=== PATIENT | female | born 1990 | race Caucasian/White ===

== ENCOUNTER 2019-04-27 01:48 | Outpatient (CLI) | payer OTHER ==
[2019-04-27 02:35] VITALS: BP 135/69; PULSE 118; RESP 18; TEMP 97.3
--- NOTE | 2019-04-30 12:24 | P.MSEPDOC ---
Presenting Problems - Arrival Data Date of Arrival on Unit: 04/27/19 Time of Arrival on Unit: 01:48 Mode of Transport: Ambulatory - Complaint OB-Reason for Admission/Chief Complaint: Pain Medical History - Information : 2 Para: 1 Term: 1 : 0 Abortions: Spontaneous or Elective: 0 Number of Living Children: 1 - Gestational Age Gestational Age by ARGELIA (wks/days): 21 Weeks and 2 Days Review of Systems - Review of Systems Constitutional: No problems Breast: No problems ENT: No problems Cardiovascular: No problems Respiratory: No problems Gastrointestinal: No problems Genitourinary: No problems Musculoskeletal: No problems Neurological: No problems Skin: No problems Vital Signs - Temperature Temperature: 97.3 F Temperature Source: Temporal Artery Scan - Pulse Right Brachial Pulse Rate: 118 Pulse Assessment Method: Automatic Cuff - Respirations Respiratory Rate: 18 Oxygen Delivery Method: Room Air O2 Sat by Pulse Oximetry: 98 - Blood Pressure Right Arm Blood Pressure: 135/69 Blood Pressure Mean: 91 Blood Pressure Source: Automatic Cuff Medical Screen Scoring (Pre) - Cervical Exam Dilation: Exam Deferred Effacement: Exam Deferred - Uterine Contractions Frequency: N/A Duration: N/A Intensity: N/A - Maternal Vital Signs Maternal Temperature: N/A Signs of Preeclampsia: N/A Maternal Respirations: N/A - Maternal Trauma Maternal Trauma: N/A - Assessment - Baby A Heart Rate - NICHD Category: Category I (Normal) = 0 - Total Score - Baby A Total Score - Baby A: 0 - Total Score - Baby B Total Score - Baby B: 0 - Total Score - Baby C Total Score - Baby C: 0 - Level of Risk - Baby A Level of Risk - Baby A: Low (0-5) - Level of Risk - Baby B Level of Risk - Baby B: Low (0-5) - Level of Risk - Baby C Level of Risk - Baby C: Low (0-5) Physician Notification (Pre) - Physician Notified Physician Notified Date: 04/27/19 Physician Notified Time: 02:03 New Order Received: Yes - Notification Comment Comment: Reported pt s/s, bp's and fhr dopplered at 157-175. Dr. Carrasco cleared pt to go to ER. for further evaluation. Disposition - Disposition OB Disposition: Discharge to home, Written follow up instructions reviewed Discharge Date: 04/27/19 Discharge Time: 02:07 I agree with the RN Medical Screening Exam: Yes Risk & Benefit of care provided described in d/c instruction: Yes Diagnosis: EPIGASTRIC PAIN
== END 2019-04-27 02:07 | disposition home or self-care (01) ==
LOC: MERGE 01:48 → FBPOP 01:48
PROVIDERS: ATTEND Obstetrics & Gynecology
DX: O99.89 Other specified diseases and conditions complicating pregnancy, childbirth and the puerperium (principal); R10.13 Epigastric pain; Z3A.21 21 weeks gestation of pregnancy
CPT/HCPCS: 99213

== ENCOUNTER 2019-04-27 02:20 | Emergency (ER) | payer OTHER ==
[2019-04-27] MEDS ORDERED: SODIUM CHLORIDE 0.9% 1,000 ML IV STA (02:34)
[2019-04-27] MEDS ORDERED: METOCLOPRAMIDE 5 MG/ML 2 ML VIAL IVP STA (02:34)
[2019-04-27] MEDS ORDERED: diphenhydrAMINE 50 MG/ML 1 ML VIAL IVP STA (02:34)
[2019-04-27 02:35] VITALS: RESP 18
[2019-04-27] MEDS ORDERED: FAMOTIDINE 20 MG/2 ML VIAL IV STA (02:35)
--- NOTE | 2019-04-27 02:39 | ED ---
Abdominal Pain HPI - General Chief Complaint: Abdominal Pain Stated Complaint: 21 Wks Preg, Abd Pain Time Seen by Provider: 04/27/19 02:24 Source: patient Mode of arrival: ambulatory Limitations: no limitations - History of Present Illness Initial Comments: 28-year-old female patient presents to the emergency department today for evaluation of vomiting and midepigastric pain that started around 11:30 this evening. Patient states she has vomited over 12 times. Patient is reporting a burning pressure type pain to the midepigastric region. Denies any radiation of the pain through to her back. Denies fever or chills. Denies constipation or diarrhea. Patient is 21 weeks, 4 days , . Denies any suprapubic pain or low back pain. Denies any abnormal vaginal bleeding or discharge. She is reporting some dysuria. States she has had ultrasounds of the fetus which were all unremarkable. Denies any recent travel or sick contacts. Denies any ingestion of questionable foods. Patient denies any recent rash, shortness breath, chest pain, numbness, tingling, dizziness, weakness, headache, visual changes, or any other complaints. Patient was seen in the labor and delivery unit, they did perform heart tones 157-175. Blood pressures were unremarkable. Dr. Carrasco did not feel her pain was related, she was sent here for further evaluation. - Related Data Home Medications Medication Instructions Recorded Confirmed Pnv No.95/Ferrous Fum/Folic AC 1 tab PO ONCE 04/27/19 04/27/19 [ Multivitamin Tablet] Previous Rx's Medication Instructions Recorded Cephalexin [Keflex] 500 mg PO BID #14 cap 04/27/19 Famotidine [Pepcid] 20 mg PO HS #14 tablet 04/27/19 Metoclopramide [Reglan] 10 mg PO Q8H PRN #10 tab 04/27/19 Allergies Allergy/AdvReac Type Severity Reaction Status Date / Time No Known Allergies Allergy Verified 04/27/19 01:56 Review of Systems ROS Statement: Those systems with pertinent positive or pertinent negative responses have been documented in the HPI. ROS Other: All systems not noted in ROS Statement are negative. Past Medical History Past Medical History: No Reported History History of Any Multi-Drug Resistant Organisms: None Reported Past Surgical History: No Surgical Hx Reported Past Psychological History: No Psychological Hx Reported Smoking Status: Never smoker Past Alcohol Use History: None Reported Past Drug Use History: None Reported General Exam Limitations: no limitations General appearance: alert, in no apparent distress, other (This is a well- developed, well-nourished adult female patient in no acute distress. Vital signs upon presentation are temperature 98.1F, pulse 105, respirations 18, blood pressure 122/76, pulse ox 99% on room air.) Eye exam: Present: normal appearance, PERRL, EOMI. Absent: scleral icterus, conjunctival injection, periorbital swelling ENT exam: Present: normal exam, normal oropharynx, mucous membranes moist Respiratory exam: Present: normal lung sounds bilaterally. Absent: respiratory distress, wheezes, rales, rhonchi, stridor Cardiovascular Exam: Present: normal rhythm, tachycardia, normal heart sounds. Absent: systolic murmur, diastolic murmur, rubs, gallop, clicks GI/Abdominal exam: Present: soft, tenderness (Midepigastric right upper quadrant tenderness), normal bowel sounds. Absent: distended, guarding, rebound, rigid Neurological exam: Present: alert, oriented X3, CN II-XII intact Psychiatric exam: Present: normal affect, normal mood Skin exam: Present: warm, dry, intact, normal color. Absent: rash Course Vital Signs 04/27/19 02:31 Temperature 98.1 F Pulse Rate 105 H Respiratory 18 Rate Blood Pressure 122/76 O2 Sat by Pulse 99 Oximetry Medical Decision Making - Medical Decision Making 28 year-old female patient who is 21 weeks presents to the emergency department today for evaluation of vomiting and midepigastric burning. Physical examination reveals some mild midepigastric right upper quadrant tenderness. Labs reviewed and revealed mildly elevated white blood cell count which is most likely reactive from and vomiting. She is afebrile with normal vital signs. Mucous membranes are moist. Urinalysis shows no evidence for infection. She will be discharged with prescription for Reglan and Pepcid. She will be treated for bacteruria with keflex. She is instructed to follow-up with her primary care physician and [facility] for recheck in 1-2 days. Return parameters discussed in detail. She verbalizes understanding and agrees with this plan. - Lab Data Result diagrams: 04/27/19 03:00 04/27/19 03:00 Lab Results 04/27/19 04/27/19 04/27/19 Range/Units 02:47 03:00 03:00 WBC 11.3 H (3.8-10.6) k/uL RBC 4.08 (3.80-5.40) m/uL Hgb 12.7 (11.4-16.0) gm/dL Hct 36.0 (34.0-46.0) % MCV 88.2 (80.0-100.0) fL MCH 31.0 (25.0-35.0) pg MCHC 35.2 (31.0-37.0) g/dL RDW 14.1 (11.5-15.5) % Plt Count 245 (150-450) k/uL Neutrophils % 83 % Lymphocytes % 14 % Monocytes % 2 % Eosinophils % 0 % Basophils % 0 % Neutrophils # 9.4 H (1.3-7.7) k/uL Lymphocytes # 1.5 (1.0-4.8) k/uL Monocytes # 0.3 (0-1.0) k/uL Eosinophils # 0.1 (0-0.7) k/uL Basophils # 0.0 (0-0.2) k/uL Sodium 135 L (137-145) mmol/L Potassium 3.6 (3.5-5.1) mmol/L Chloride 106 (98-107) mmol/L Carbon Dioxide 22 (22-30) mmol/L Anion Gap 7 mmol/L BUN 5 L (7-17) mg/dL Creatinine 0.47 L (0.52-1.04) mg/dL Est GFR (CKD-EPI)AfAm >90 (>60 ml/min/1.73 sqM) Est GFR (CKD-EPI)NonAf >90 (>60 ml/min/1.73 sqM) Glucose 106 H (74-99) mg/dL Calcium 9.1 (8.4-10.2) mg/dL Total Bilirubin 0.4 (0.2-1.3) mg/dL AST 17 (14-36) U/L ALT 29 (9-52) U/L Alkaline Phosphatase 88 (38-126) U/L Total Protein 6.5 (6.3-8.2) g/dL Albumin 3.7 (3.5-5.0) g/dL Amylase 46 (30-110) U/L Lipase 46 (23-300) U/L Urine Color Yellow Urine Appearance Clear (Clear) Urine pH 6.5 (5.0-8.0) Ur Specific [place] 1.015 (1.001-1.035) Urine Protein Negative (Negative) Urine Glucose (UA) Negative (Negative) Urine Ketones Trace H (Negative) Urine Blood Negative (Negative) Urine Nitrite Negative (Negative) Urine Bilirubin Negative (Negative) Urine Urobilinogen <2.0 (<2.0) mg/dL Ur Leukocyte Esterase Trace H (Negative) Urine RBC 1 (0-5) /hpf Urine WBC 2 (0-5) /hpf Ur Squamous Epith Cells 2 (0-4) /hpf Urine Bacteria Occasional H (None) /hpf Urine Mucus Rare H (None) /hpf Disposition Clinical Impression: Vomiting, Abdominal pain, Bacteriuria during Disposition: HOME SELF-CARE Condition: Good Instructions (If sedation given, give patient instructions): Acute Nausea and Vomiting (ED), Abdominal Pain (ED) Additional Instructions: Take medications as directed. Start with a clear liquid diet and advance as tolerated. Follow up with her primary care physician for recheck in 1-2 days. Follow-up with your [facility] for recheck in 1-2 days. Return to the emergency department immediately for any new, worsening, or concerning symptoms. Prescriptions: Cephalexin [Keflex] 500 mg PO BID #14 cap Famotidine [Pepcid] 20 mg PO HS #14 tablet Metoclopramide [Reglan] 10 mg PO Q8H PRN #10 tab PRN Reason: Vomiting Is patient prescribed a controlled substance at d/c from ED?: No Referrals: Vi Agarwal MD [Primary Care Provider] - 1-2 days
[2019-04-27 02:59] LABS: Appearance,Urine Clear (Clear); Bacteria,Urine Occasional /hpf; Bilirubin,Urine Negative (Negative); Blood,Urine Negative (Negative); Color,Urine Yellow; Glucose,Urine (UA) Negative (Negative); Ketones,Urine Trace (Negative); Leukocyte Esterase,Urine Trace (Negative); Mucus,Urine Rare /hpf; Nitrite,Urine Negative (Negative); PH, Urine 6.5 (5.0-8.0); Protein,Urine Negative (Negative); RBC,Urine 1 /hpf (0-5); Specific Gravity,Urine 1.015 (1.001-1.035); Squamous Epithelial Cell,Urine 2 /hpf (0-4); Urobilinogen,Urine <2.0 mg/dL (<2.0); WBC,Urine 2 /hpf (0-5)
[2019-04-27 03:11] LABS: Basophils % (A) 0 %; Eosinophils # (A) 0.1 k/uL (0-0.7); Eosinophils % (A) 0 %; HGB 12.7 gm/dL (11.4-16.0); Lymphocytes # (A) 1.5 k/uL (1.0-4.8); Lymphocytes % (A) 14 %; MCHC 35.2 g/dL (31.0-37.0); MCV 88.2 fL (80.0-100.0); Mean Platelet Volume 8.1; Monocytes # (A) 0.3 k/uL (0-1.0); Monocytes % (A) 2 %; Neutrophils # (A) 9.4 k/uL (1.3-7.7); Neutrophils % (A) 83 %; Platelet Count 245 k/uL (150-450); RBC 4.08 m/uL (3.80-5.40); RDW 14.1 % (11.5-15.5); WBC 11.3 k/uL (3.8-10.6)
[2019-04-27 03:22] LABS: ALT 29 U/L (9-52); AST 17 U/L (14-36); African American GFR (CKD) >90 (>60 ml/min/1.73 sqM); Albumin 3.7 g/dL (3.5-5.0); Alkaline Phosphatase 88 U/L (38-126); Amylase 46 U/L (30-110); Anion Gap 7 mmol/L; Blood Urea Nitrogen 5 mg/dL (7-17); Calcium 9.1 mg/dL (8.4-10.2); Carbon Dioxide 22 mmol/L (22-30); Chloride 106 mmol/L (98-107); Glucose 106 mg/dL (74-99); Non-African American GFR(CKD) >90 (>60 ml/min/1.73 sqM); Potassium 3.6 mmol/L (3.5-5.1); Sodium 135 mmol/L (137-145); Total Bilirubin 0.4 mg/dL (0.2-1.3); Total Protein 6.5 g/dL (6.3-8.2)
[2019-04-27 04:35] VITALS: BP 136/70; PULSE 79; TEMP 98
== END 2019-04-27 04:35 | disposition home or self-care (01) ==
LOC: MERGE 02:20 → EC 02:20
DX: O21.9 Vomiting of pregnancy, unspecified (principal); O99.89 Other specified diseases and conditions complicating pregnancy, childbirth and the puerperium; R82.71 Bacteriuria; R10.13 Epigastric pain; R00.0 Tachycardia, unspecified; O99.112 Other diseases of the blood and blood-forming organs and certain disorders involving the immune mechanism complicating pregnancy, second trimester; D72.829 Elevated white blood cell count, unspecified; Z3A.21 21 weeks gestation of pregnancy
CPT/HCPCS: 99283 ×2; 96374 ×2; 96375 ×3; 96361 ×2; 36415; 80053; 82150; 83690; 85025; 81001; 87086; G0463; J1200; J2765; 99213

== ENCOUNTER 2019-08-31 06:00 | Inpatient (IN) | payer BC, OTHER ==
[2019-08-31] MEDS ORDERED: CARBOPROST TROMETHAMINE 250 MCG/ML 1 ML AMP IM PRN (06:24)
[2019-08-31] MEDS ORDERED: LIDOCAINE 0.5% (PF) 5 MG/ML (50 ML SDV) SQ PRN (06:24)
[2019-08-31] MEDS ORDERED: OXYTOCIN 10 UNIT/ML 1 ML VIAL IM PRN (06:24)
[2019-08-31] MEDS ORDERED: TERBUTALINE 1 MG/ML VIAL SQ PRN (06:24)
[2019-08-31] MEDS ORDERED: METHYLERGONOVINE 0.2 MG/ML 1 ML AMP IM PRN (06:24)
[2019-08-31] MEDS ORDERED: OXYTOCIN 30 UNITS/500 ML NS 30 UNIT in SALINE 1 500ML.BAG IV SCH (06:30)
[2019-08-31] MEDS: LACTATED RINGERS 1,000 ML IV SCH ×2 (06:37→10:12)
[2019-08-31 06:43] LABS: Basophils % (A) 0 %; Eosinophils % (A) 1 %; HGB 11.3 gm/dL (11.4-16.0); Lymphocytes # (A) 1.2 k/uL (1.0-4.8); Lymphocytes % (A) 18 %; MCH 27.8 pg (25.0-35.0); MCHC 33.1 g/dL (31.0-37.0); MCV 84.1 fL (80.0-100.0); Mean Platelet Volume 9.4; Monocytes # (A) 0.2 k/uL (0-1.0); Monocytes % (A) 4 %; Neutrophils # (A) 5.1 k/uL (1.3-7.7); Neutrophils % (A) 76 %; Platelet Count 214 k/uL (150-450); RBC 4.05 m/uL (3.80-5.40); RDW 13.6 % (11.5-15.5); WBC 6.8 k/uL (3.8-10.6)
[2019-08-31] MEDS ORDERED: fentaNYL (PF) 50 MCG/ML 5 ML AMP ONE (09:46)
[2019-08-31] MEDS ORDERED: ROPIVACAINE 5MG/ML 20ML VIAL ONE (09:46)
[2019-08-31] MEDS ORDERED: SODIUM CHLORIDE 0.9% 100 ML BAG ONE (09:46)
[2019-08-31] MEDS ORDERED: ACETAMINOPHEN TAB 325 MG TAB PO PRN ×2 (14:16→14:24)
[2019-08-31] MEDS ORDERED: WITCH HAZEL 1 EACH MED..PAD TOPICAL PRN ×2 (14:16→14:24)
[2019-08-31] MEDS ORDERED: ZOLPIDEM 5 MG TAB PO PRN ×2 (14:16→14:24)
[2019-08-31] MEDS ORDERED: LANOLIN CREAM 5 GM TUBE TOPICAL PRN ×2 (14:16→14:24)
[2019-08-31] MEDS ORDERED: HYDROCORTISONE 2.5% RECTAL CREAM 30 GM TUBE RECTAL PRN ×2 (14:16→14:24)
[2019-08-31] MEDS ORDERED: SIMETHICONE 80 MG CHEWABLE PO PRN ×2 (14:16→14:24)
[2019-08-31] MEDS ORDERED: diphenhydrAMINE 25 MG CAP PO PRN ×2 (14:16→14:24)
[2019-08-31] MEDS ORDERED: diphenhydrAMINE 50 MG CAP PO PRN ×2 (14:16→14:24)
[2019-08-31] MEDS ORDERED: BENZOCAINE/MENTHOL SPRAY 1 GM/SPRAY AEROSOL TOPICAL PRN ×2 (14:16→14:24)
[2019-08-31] MEDS ORDERED: HYDROcodone/APAP 5-325MG 1 EACH TAB PO PRN (14:16)
[2019-08-31] MEDS ORDERED: diphenhydrAMINE 50 MG/ML 1 ML VIAL IVP PRN ×4 (14:16→14:24)
[2019-08-31] MEDS ORDERED: IBUPROFEN 600 MG TAB PO PRN (14:24)
[2019-08-31] MEDS ORDERED: OXYTOCIN 20 UNITS/1000 ML NS 1,000 ML IV SCH ×2 (14:30)
--- NOTE | 2019-08-31 14:30 | P.HPOB ---
History of Present Illness H&P Date: 08/31/19 Chief Complaint: Intrauterine at term: Latent syphilis Ashley is a 28-year-old at 39 weeks gestation who arrives for induction of labor. Her Precis course has been, complicated by syphilis which was believed to be latent but was treated health Department. Titers have dropped from 164- 116 and the health department apparently was pleased with this result. She has been followed closely with maternal medicine and myself and has been receiving nonstress tests through the latter part of the . No other issues or competitions during the . Pertinent labs included O+ blood type, Rh antibody was negative, rubella was immune, hepatitis B surface antigen was negative, RPR was positive and she was treated during the with penicillin. This morning she had a category 1 tracing with heart tones in the 140s. She was dilated to 4/2 cm artificial rupture membranes was performed and clear fluid is noted. She plans to use epidural for analgesia. Pitocin augmentation of labor has been initiated. Past Medical History Past Medical History: No Reported History History of Any Multi-Drug Resistant Organisms: None Reported Past Surgical History: No Surgical Hx Reported Past Anesthesia/Blood Transfusion Reactions: No Reported Reaction Past Psychological History: No Psychological Hx Reported Smoking Status: Never smoker Past Alcohol Use History: None Reported Past Drug Use History: None Reported - Past Family History Mother Family Medical History: No Reported History Medications and Allergies Home Medications Medication Instructions Recorded Confirmed Type Pnv No.95/Ferrous Fum/Folic AC 1 tab PO ONCE 04/27/19 08/31/19 History [ Multivitamin Tablet] Allergies Allergy/AdvReac Type Severity Reaction Status Date / Time No Known Allergies Allergy Verified 08/31/19 06:23 Exam Osteopathic Statement: *. No significant issues noted on an osteopathic structural exam other than those noted in the History and Physical/Consult. Vital Signs Temp Pulse Resp BP Pulse Ox 08/31/19 14:15 99.2 F 88 18 128/73 08/31/19 14:03 18 08/31/19 14:00 98.8 F 83 18 126/71 97 08/31/19 06:28 97.3 F L 96 16 122/79 98 Intake and Output 08/30/19 08/31/19 08/31/19 22:59 06:59 14:59 Other: Weight 101.605 kg - OBG Physical Exam Breast: both: normal (no masses) Abdomen: bowel sounds normal, no diffuse tenderness, no bruit present, no guarding noted, no hepatomegaly, no splenomegaly, no mass Vulva: both: normal Vagina: normal moisture, no discharge Cervix: no lesion, no discharge Uterus: normal size, normal contour Adnexa: both: normal Anus/Rectum: normal perianal skin, no rectal mass, no hemorrhoids, heme negative Results Result Diagrams: 08/31/19 06:35 Abnormal Lab Results - Last 24 Hours (Table) 08/31/19 Range/Units 06:35 Hgb 11.3 L (11.4-16.0) gm/dL
--- NOTE | 2019-08-31 14:31 | P.PROBDLV ---
Vaginal Delivery Note - . Vaginal Delivery Note: Patient progressed complete and pushing with spontaneous vaginal delivery of a viable male over secondary perineal laceration. Baby was delivered from straight OA position. Nuchal cord 1 was noted and easily reduced. Interim posterior shoulders were then easily delivered with gentle downward upper traction followed by the remainder the baby. Mouth and nares were then bulb suctioned and baby was placed on mother's abdomen where the umbilical cord was allowed to pulsate for 40 seconds prior to clamping and cutting. Once this was accomplished nursery personnel was present and assumed care. Placenta was then delivered intact Pitocin was added to the IV. scores were 9 and 9 at one and 5 minutes respectively and the weight was 8 lbs. 3 oz. 6. Perineal laceration was then repaired with 3-0 Vicryl in usual fashion following 1% Xylocaine for analgesia. Both mother and baby are stable following delivery. Pediatrics was notified of bleeding syphilis status by the mother.
[2019-08-31] MEDS: IBUPROFEN 600 MG TAB PO PRN ×2 (16:30→23:19)
[2019-08-31] MEDS ORDERED: SENNOSIDES-DOCUSATE SODIUM 1 EACH TAB PO SCH (20:00)
[2019-08-31] MEDS: SENNOSIDES-DOCUSATE SODIUM 1 EACH TAB PO SCH (23:18)
[2019-09-01 07:46] LABS: Basophils % (A) 0 %; Eosinophils # (A) 0.1 k/uL (0-0.7); Eosinophils % (A) 1 %; HCT 33.8 % (34.0-46.0); HGB 10.9 gm/dL (11.4-16.0); Hypochromasia Slight; Lymphocytes # (A) 1.3 k/uL (1.0-4.8); Lymphocytes % (A) 19 %; MCH 27.5 pg (25.0-35.0); MCHC 32.3 g/dL (31.0-37.0); Mean Platelet Volume 9.5; Monocytes # (A) 0.3 k/uL (0-1.0); Monocytes % (A) 4 %; Neutrophils # (A) 5.1 k/uL (1.3-7.7); Neutrophils % (A) 74 %; Platelet Count 220 k/uL (150-450); RBC 3.97 m/uL (3.80-5.40); RDW 13.4 % (11.5-15.5)
--- NOTE | 2019-09-01 11:03 | P.PN ---
Progress Note - Text Progress Note Date: 09/01/19 Overall Glenny is doing well. She is ambulating voiding tolerating her diet. A reevaluation of her RPR reveals it is still reactive and a tighter is now again pending. Baby also has a positive RPR apparently and that titer is also pending. Will not be able to be discharged today as baby is going to special care nursery for evaluation and treatment. Otherwise all questions are answered for her. On physical exam, her vital signs are stable and she is afebrile. Heart regular, lungs clear, extremities without pain. Abdomen soft uterus is firm and lochia is reported light. Assessment day 1. Plan continue current care.
[2019-09-01] MEDS: SENNOSIDES-DOCUSATE SODIUM 1 EACH TAB PO SCH ×2 (11:36→23:24)
[2019-09-01] MEDS: IBUPROFEN 600 MG TAB PO PRN ×2 (15:57→23:25)
[2019-09-02] MEDS: SENNOSIDES-DOCUSATE SODIUM 1 EACH TAB PO SCH (10:35)
--- NOTE | 2019-09-02 12:02 | P.DS ---
Providers Date of admission: 08/31/19 06:10 Expected date of discharge: 09/02/19 Attending physician: José Wall Primary care physician: Stated None Hospital Course: Glenny is doing very well day 2. She is ambulating, voiding and tolerating her diet. She voices no complaint. Vital signs are stable and afebrile. Heart regular, lungs clear, extremities without pain. Abdomen soft uterus is firm and lochia is reported light. Assessment day 2. Plan discharged home follow up with me in 6 weeks. Discharge instructions were thoroughly reviewed and all questions were again answered for her. Prescription for Motrin was for her to her pharmacy. Patient Condition at Discharge: Good Plan - Discharge Summary New Discharge Prescriptions: New Ibuprofen [Motrin] 600 mg PO Q6HR PRN #30 tab PRN Reason: Pain No Action Pnv No.95/Ferrous Fum/Folic AC [ Multivitamin Tablet] 1 tab PO ONCE Discharge Medication List Pnv No.95/Ferrous Fum/Folic AC [ Multivitamin Tablet] 1 tab PO ONCE 04/27/19 [History] Ibuprofen [Motrin] 600 mg PO Q6HR PRN #30 tab 09/02/19 [Rx] Follow up Appointment(s)/Referral(s): José Wall DO [Doctor of Osteopathic Medicine] - 6 Weeks Activity/Diet/Wound Care/Special Instructions: No heavy lifting, limit stairs and driving, and pelvic rest. If any high temperatures, heavy bleeding, or severe pain call my office Discharge Disposition: HOME SELF-CARE
[2019-09-02] MEDS: IBUPROFEN 600 MG TAB PO PRN (13:45)
[2019-09-02 16:20] VITALS: BP 112/71; PULSE 91; RESP 17; TEMP 98.4
== END 2019-09-02 16:27 | disposition home or self-care (01) | DRG 807 ==
LOC: 4FBP 06:10
PROVIDERS: ADMIT Obstetrics & Gynecology; ATTEND Obstetrics & Gynecology
DX: O98.12 Syphilis complicating childbirth (principal); Z37.0 Single live birth; A53.0 Latent syphilis, unspecified as early or late; O69.81X0 Labor and delivery complicated by cord around neck, without compression, not applicable or unspecified; O99.62 Diseases of the digestive system complicating childbirth; K21.9 Gastro-esophageal reflux disease without esophagitis; Z3A.39 39 weeks gestation of pregnancy
CPT/HCPCS: 85025; 86592; 86780; 86850; 86900; 86901